=== PATIENT | male | born 1985 | race Asian ===

== ENCOUNTER 2017-05-06 16:32 | Observation (INO) | payer BC, OTHER ==
[~2017-05-06] VITALS: Ht 167.6 cm; Wt 88.0 kg
[2017-05-06] MEDS ORDERED: SODIUM CHLORIDE FLUSH 10ML SYR IVF ONE (17:00)
[2017-05-06] MEDS ORDERED: FAMOTIDINE 20 MG/2 ML IVP ONE (17:00)
[2017-05-06] MEDS ORDERED: ONDANSETRON 2MG/ML, 2ML IVPush ONE (17:00)
[2017-05-06 17:22] LABS: HEMATOCRIT 48.7 % (39.2-51.8); HEMOGLOBIN 16.4 g/dL (13.7-18.0); WHITE BLOOD COUNT 7.2 x10^3/uL (3.4-10)
[2017-05-06 17:34] LABS: ASPARTATE AMINO TRANSFERASE 15 U/L (15-37); BLOOD UREA NITROGEN 10 mg/dL (7-18)
[2017-05-06 18:27] LABS: PATH.CAST-FLAG NOT PRESENT; SPERM-FLAG NOT PRESENT; SRC-FLAG NOT PRESENT; XTAL-FLAG NOT PRESENT; YLC-FLAG NOT PRESENT
[2017-05-06] MEDS ORDERED: ONDANSETRON 2MG/ML, 2ML ONE ×2 (18:37→22:47)
[2017-05-06] MEDS ORDERED: FAMOTIDINE 20 MG/2 ML ONE (18:37)
[2017-05-06] MEDS ORDERED: FENTANYL PF 250 MCG/5ML ONE (22:09)
[2017-05-06] MEDS ORDERED: MIDAZOLAM 1 MG/ML, 2ML ONE (22:09)
[2017-05-06] MEDS ORDERED: BUPIVACAINE/PF 0.5% ONE (22:14)
[2017-05-06] MEDS ORDERED: EPINEPHRINE 1 MG/ML, 1ML ONE (22:14)
[2017-05-06] MEDS ORDERED: CEFOTETAN PMX 1GM/50ML 50 ML IVPB ONE (22:28)
[2017-05-06] MEDS ORDERED: LIDOCAINE 4%, 4 ML SYR/CANN TP ONE (22:28)
[2017-05-06] MEDS ORDERED: PHENYLEPHRINE 10 MG/ML ONE (22:28)
[2017-05-06] MEDS ORDERED: SODIUM CHLORIDE FLUSH 10ML SYR IVF PRN (22:30)
[2017-05-06] MEDS ORDERED: BUPIVACAINE/PF-EPI 0.5% 1:200K IM ONE (22:42)
[2017-05-06] MEDS ORDERED: DEXAMETHASONE 4 MG/ML, 1ML ONE (22:47)
[2017-05-06] MEDS ORDERED: NEOSTIGMINE 1 MG/ML, 10ML ONE (22:47)
[2017-05-06] MEDS ORDERED: GLYCOPYRROLATE 0.2MG/1ML, 5ML ONE (22:47)
[2017-05-06] MEDS ORDERED: ROCURONIUM 10 MG/ML,10ML ONE (22:47)
[2017-05-06] MEDS ORDERED: SUCCINYLCHOLINE 20 MG/ML, 10ML ONE (22:47)
[2017-05-06] MEDS ORDERED: PROPOFOL 10 MG/ML, 20ML ONE (22:47)
[2017-05-06] MEDS ORDERED: CEFAZOLIN 1,000 MG ONE (22:47)
[2017-05-06] MEDS ORDERED: HYDROmorphone 1 MG/ML, 1ML ONE (22:57)
[2017-05-06] MEDS ORDERED: FENTANYL PF 100 MCG/2ML IV PRN (23:00)
[2017-05-06] MEDS ORDERED: HYDROmorphone 1 MG/ML, 1ML IV PRN (23:00)
[2017-05-06] MEDS ORDERED: OXYcodone 5 MG/5 ML ORAL.SOL UDC PO PRN (23:00)
[2017-05-06] MEDS ORDERED: ONDANSETRON 2MG/ML, 2ML IVPush PRN ×2 (23:00→23:30)
[2017-05-06] MEDS ORDERED: PROMETHAZINE 25 MG/ML, 1ML IM PRN (23:30)
[2017-05-06] MEDS ORDERED: morphine SULFATE 10 MG/ML, 1ML IVPush PRN (23:30)
[2017-05-06] MEDS ORDERED: ENALAPRILAT 1.25 MG/ML, 2ML IVPush PRN (23:30)
[2017-05-06] MEDS ORDERED: LABETALOL 5MG/ML, 20ML IVPush PRN (23:30)
[2017-05-06] MEDS ORDERED: CEFOTETAN PMX 1GM/50ML 50 ML IVPB SCH (23:30)
[2017-05-07 01:04] VITALS: BP 124/82
[2017-05-07 02:00] VITALS: BP 118/75
[2017-05-07] MEDS: D5%-0.45NACL+KCL 20MEQ 1,000 ML IV SCH ×2 (03:16→10:10)
[2017-05-07] MEDS: OXYcodone/APAP 7.5/325MG TABLET PO PRN ×2 (04:04→10:11)
[2017-05-07 04:45] VITALS: BP 133/70
[2017-05-07 05:23] LABS: HEMATOCRIT 45.9 % (39.2-51.8); HEMOGLOBIN 15.8 g/dL (13.7-18.0); WHITE BLOOD COUNT 11.8 x10^3/uL (3.4-10)
[2017-05-07 08:03] VITALS: BP 117/68
[2017-05-07] MEDS ORDERED: OXYC-306 PO (11:39)
[2017-05-07] MEDS ORDERED: ONDA4TAB7 PO (11:40)
[2017-05-07] MEDS ORDERED: FLU VACC QS2017-18 (36MOS+) UP/PF 0.5 ML IM-VACC ONE (12:30)
== END 2017-05-07 14:10 | disposition home or self-care (01) ==
LOC: ED 19:18 → EDIP 22:15 → 4NOR 05-07 00:50 → DCLOUNGE 05-07 14:01
PROVIDERS: ADMIT Surgery; ATTEND Surgery
DX: K35.80 Unspecified acute appendicitis (principal); Z72.0 Tobacco use
CPT/HCPCS: 36415; 44970; 74176; 80053; 81001; 83690; 85025; 88304; 90471; 90686; 96365; 96375; 99285; G0378; J0171; J0330; J0690; J1100; J2250; J2370; J2405; J2704; J3010; J3480; J3490; S0074; J1170; J2710; S0028

== ENCOUNTER 2020-11-24 20:27 | Emergency (ER) | payer SELFPAY ==
[~2020-11-24] VITALS: Ht 165.1 cm; Wt 96.2 kg
[~2020-11-24 20:27] MED LIST: ONDA4TAB7 PO; OXYC1TAB17 PO
[2020-11-24 22:15] VITALS: BP 129/71
== END 2020-11-24 23:22 | disposition home or self-care (01) ==
LOC: ED 23:00
DX: H65.01 Acute serous otitis media, right ear (principal)
CPT/HCPCS: 99283